=== PATIENT | female | born 1990 | race Caucasian/White ===

== ENCOUNTER → 2017-03-26 | Outpatient (CLI) | payer OTHER ==
[~2017-03-26] MED LIST: AMOXICILLIN 50500 MG PO; MUCINEX ER600 MG PO; ZITHROMAX Z-PA250 M1 PO
[2017-03-26 18:53] LABS: HEMOGLOBIN 13.2 g/dL (12.2-16.2); LYMPH # 2.1 K/mm3 (0.7-4.5); LYMPH % 27.1 % (10-50.0)
[2017-03-26 20:48] LABS: BUN 12 mg/dL (7-18)
[2017-03-26 20:49] LABS: GFR (ESTIMATED) 102 ML/MIN (59-)
[2017-03-28 14:40] LABS: EBV Ab VCA, IgM <36.0 U/mL (0.0-35.9)
== END ==
LOC: LAB 18:42
PROVIDERS: Physician Assistant
DX: R10.822 Left upper quadrant rebound abdominal tenderness (principal)